=== PATIENT | female | born 1995 | race Two or more races ===

== ENCOUNTER 2021-05-13 09:42 | Emergency (ER) | payer MEDICAID ==
[~2021-05-13] VITALS: Ht 165.1 cm; Wt 81.6 kg
[2021-05-13 10:44] LABS: Basophils # (auto) 0.1 10 ^3/uL (0-0.2); Basophils % (auto) 0.5 % (0.0-2.0); Eosinophils # (auto) 0 10 ^3/uL (0-0.8); Eosinophils % (auto) 0.1 % (0.0-7.0); Hematocrit 43.1 % (36.0-46.0); Hemoglobin 14.2 g/dL (12.2-16.2); Lymphocytes # (auto) 1.2 10 ^3/uL (0.4-5.4); Lymphocytes % (auto) 8.9 % (10.0-50.0); Mean Corpuscular Hemoglobin 28.1 pg (28.0-32.0); Mean Corpuscular Volume 85.1 fL (80.0-100.0); Monocytes # (auto) 0.3 10 ^3/uL (0-1.3); Monocytes % (auto) 2.2 % (0.0-12.0); Neutrophils # (auto) 11.7 10 ^3/uL (1.6-8.6); Neutrophils % (auto) 88.3 % (37.0-80.0); Nucleated Red Blood Cells % 0.1 %; Red Blood Cells 5.06 10^6/uL (4.0-5.20); White Blood Cell 13.3 10^3/uL (4.4-10.8)
[2021-05-13 11:07] LABS: Albumin 4.1 g/dL (3.4-5.0); Magnesium 1.9 mg/dL (1.6-2.6); Potassium 3.2 mmol/L (3.5-5.1)
[2021-05-13 11:12] LABS: Bilirubin, Total 0.7 mg/dL (0.2-1.0); Total Protein 8.4 g/dL (6.4-8.2)
[2021-05-13 11:37] LABS: Urine Amorphous Crystal FEW /hpf (None Seen); Urine Bacteria NONE SEEN /hpf (None Seen); Urine Blood 3+ /uL (Negative); Urine Mucus FEW (None Seen); Urine Specific Gravity 1.036 (1.001-1.035); Urine WBC 13 /hpf (0 - 5)
[2021-05-13] MEDS ORDERED: CIPR-173 PO (12:39)
[2021-05-13] MEDS ORDERED: FAMO20TA10 PO (12:39)
[2021-05-13] MEDS ORDERED: ONDA-144 PO (12:39)
[2021-05-13] MEDS ORDERED: ONDANSETRON HCL 4 MG/2 ML VIAL ONE (12:53)
[2021-05-13] MEDS ORDERED: PANTOPRAZOLE 40 MG/10 ML VIAL INJ IV ONE ×2 (12:53→13:00)
[2021-05-13] MEDS ORDERED: SODIUM CHLORIDE 0.9% 2,450 ML IV ONE (13:00)
[2021-05-13] MEDS ORDERED: SODIUM CHLORIDE 0.9% 1,000 ML IV ONE (13:00)
[2021-05-13] MEDS ORDERED: ONDANSETRON HCL 4 MG/2 ML VIAL IV ONE (13:00)
[2021-05-13 14:32] VITALS: BP 132/84
== END 2021-05-13 14:34 | disposition home or self-care (01) ==
LOC: ER 09:42
DX: N39.0 Urinary tract infection, site not specified (principal); K29.70 Gastritis, unspecified, without bleeding; Z32.02 Encounter for pregnancy test, result negative
CPT/HCPCS: 36415; 74176; 80053; 81001; 81025; 82150; 83690; 83735; 85025; 96361; 96374; 96375; 99284; C9113; J2405; J7030

== ENCOUNTER 2024-07-08 20:44 | Emergency (ER) | payer MEDICAID ==
[~2024-07-08] VITALS: Ht 165.1 cm; Wt 97.7 kg
[~2024-07-08 20:44] MED LIST: CIPR-173 PO; FAMO20TA10 PO; ONDA-144 PO
--- NOTE | 2024-07-08 21:01 | ED.PDOC ---
HPI Comments 29 y.o female presents to the ED for a chief complaint of left sided chest pain associated with SOB that started 3-4 hours ago during work. Patient reports having a physically strenuous job, was pushing and pulling heavy benz and objects when pain presented. Patient reports pain is constant, non radiating and worsens when attempting to take a deep breath. She denies any nausea, vomiting, fever, chills, leg swelling or back pain. Chief Complaint: Chest Pain Time Seen by MD: 20:50 Primary Care Provider: GHAZAL PMD Reviewed Notes: Nurses Notes, Medications, Allergies Allergies: Coded Allergies: NO KNOWN ALLERGIES (Unverified , 05/13/21) Home Meds Active Scripts Ciprofloxacin Hcl (Cipro) 500 Mg Tab, 500 MG PO DAILY for 10 Days, #10 TAB Prov:WILLIAM BO MD 05/13/21 Famotidine (PEPCID TABLET) 20 Mg Tb, 1 TAB PO BID for 10 Days, #20 TAB Prov:WILLIAM BO MD 05/13/21 Ondansetron (Zofran) 4 Mg Tab, 4 MG PO BID for 10 Days, #20 MG Prov:WILLIAM BO MD 05/13/21 Information Source: Patient Mode of Arrival: Ambulatory Severity: Moderate Timing: Hours Duration: Since onset Location: Chest (L) Radiation: No Radiation Quality: Aching Onset: With Heavy Exertion Cardiac Risk Factors: None PE Risk Factors: None History of: None Modifying Factors: Nothing Associated Signs and Symptoms: SOB Past Medical History PAST MEDICAL HISTORY: GERD, Schizophrenia Surgical History: Denies all surgeries RANGE AID History: No Pertinent RANGE AID History Family History Family History: Reviewed,noncontributory to illness Social History Smoker: Non-Smoker Alcohol: Denies ETOH Use Drugs: Denies Drug Use Lives In: Home Constitutional: denies: chills, diaphoresis, fatigue, fever, malaise, sweats, weakness, others EENTM: denies: blurred vision, double vision, ear bleeding, ear discharge, ear drainage, ear pain, ear ringing, eye pain, eye redness, hearing loss, mouth pain, mouth swelling, nasal discharge, nose bleeding, nose congestion, nose pain, photophobia, tearing, throat pain, throat swelling, voice changes, others Respiratory: reports: SOB at rest, shortness of breath; denies: cough, hemoptysis, orthopnea, SOB with excertion, stridor, wheezing, others Cardiovascular: reports: chest pain; denies: dizzy spells, diaphoresis, Dyspnea on exertion, edema, irregular heart beat, left arm pain, lightheadedness, palpitations, PND, syncope, others Gastrointestinal: denies: abdomen distended, abdominal pain, blood streaked bowels, constipated, diarrhea, dysphagia, difficulty swallowing, hematemesis, melena, nausea, poor appetite, poor fluid intake, rectal bleeding, rectal pain, vomiting, others Genitourinary: denies: abnormal vagina bleeding, burning, dyspareunia, dysuria, flank pain, frequency, hematuria, incontinence, pain, , vagina discharge, urgency, others Neurological: denies: dizziness, fainting, headache, left sided numbness, left sided weakness, numbness, paresthesia, pre-existing deficit, right sided numbness, right sided weakness, seizure, speech problems, tingling, tremors, weakness, others Musculoskeletal: denies: back pain, gout, joint pain, joint swelling, muscle pain, muscle stiffness, neck pain, others Integumetry: denies: bruises, change in color, change in hair/nails, dryness, laceration, lesions, lumps, rash, wounds, others Allergic/Immunocompromised: denies: Difficulty Healing, Frequent Infections, Hives, Itching, others Hematologic/Lymphatic: denies: anemia, blood clots, easy bleeding, easy bruising, swollen glands, others Endocrine: denies: excessive hunger, excessive sweating, excessive thirst, excessive urination, flushing, intolerance to cold, intolerance to heat, unexplained weight gain, unexplained weight loss, others Psychiatric: denies: anxiety, bipolar disorder, depression, hopeless, panic disorder, schizophrenia, sleepless, suicidal, others All Other Systems: Reviewed and Negative Physical Exam General Appearance: No Apparent Distress, Normal HEENT: Normal ENT Inspection, Pharynx Normal, TMs Normal Neck: Full Range of Motion, Non-Tender, Normal, Normal Inspection Respiratory: Chest Non-Tender, Lungs Clear, No Accessory Muscle Use, No Respiratory Distress, Normal Breath Sounds Cardiovascular: No Edema, No JVD, No Murmur, No Gallop, Normal Peripheral Pulses, Regular Rate/Rhythm Breast Exam: Deferred Gastrointestinal: No Organomegaly, Non Tender, No Pulsatile Mass, Normal Bowel Sounds, Soft Genitalia: Deferred Pelvic: Deferred Rectal: Deferred Extremities: No calf tenderness, Normal capillary refill, Normal inspection, Normal range of motion, Non-tender, No pedal edema Musculoskeletal : Apperance: Normal 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 Was a procedure done?: No CP Differential Dx Differential Diagnosis: Angina, Anxiety / Panic Attack, Heart Failure, IN Differential Diagnosis: Angina, Chest Wall Pain, Cholelithiasis, Costochondritis, Myocardial Infarction, Pericarditis X-Ray, Labs, Meds, VS Vital Signs Date Time Temp Pulse Resp B/P (MAP) Pulse Ox O2 Delivery O2 Flow Rate FiO2 07/08/24 21:03 98.6 82 17 121/82 (95) 98 07/08/24 20:50 81 Lab Test 07/08/24 20:57 Range/Units White Blood Count 12.1 H 4.4-10.8 10^3/uL Red Blood Count 4.54 4.0-5.20 10^6/uL Hemoglobin 12.1 L 12.2-16.2 g/dL Hematocrit 37.3 36.0-46.0 % Mean Corpuscular Volume 82.2 80.0-100.0 fL Mean Corpuscular Hemoglobin 26.7 L 28.0-32.0 pg Mean Corpuscular Hemoglobin Concent 32.5 32.0-36.0 g/dL Red Cell Distribution Width 15.6 H 11.8-14.3 % Platelet Count 390 140-450 10^3/uL Mean Platelet Volume 8.0 6.9-10.8 fL Neutrophils (%) (Auto) 70.1 37.0-80.0 % Lymphocytes (%) (Auto) 24.8 10.0-50.0 % Monocytes (%) (Auto) 3.8 0.0-12.0 % Eosinophils (%) (Auto) 0.7 0.0-7.0 % Basophils (%) (Auto) 0.6 0.0-2.0 % Neutrophils # (Auto) 8.5 1.6-8.6 10 ^3/uL Lymphocytes # (Auto) 3.0 0.4-5.4 10 ^3/uL Monocytes # (Auto) 0.5 0-1.3 10 ^3/uL Eosinophils # (Auto) 0.1 0-0.8 10 ^3/uL Basophils # (Auto) 0.1 0-0.2 10 ^3/uL Nucleated Red Blood Cells 0.0 % Prothrombin Time 10.5 9.3-11.8 sec Prothrombin Time INR 0.99 0.9-1.15 Activated Partial Thromboplast Time 28.2 24.5-34.5 SEC Sodium Level 139 136-145 mmol/L Potassium Level 3.8 3.5-5.1 mmol/L Chloride Level 105 98-107 mmol/L Carbon Dioxide Level 27 20-31 mmol/L Anion Gap 7 5-15 Blood Urea Nitrogen 14 9-23 mg/dL Creatinine 0.79 0.550-1.02 mg/dL Glomerular Filtration Rate Calc 104 >90 mL/min BUN/Creatinine Ratio 17.7 10.0-20.0 Serum Glucose 90 74-106 mg/dL Calcium Level 10.4 8.7-10.4 mg/dL Total Bilirubin 0.5 0.2-1.0 mg/dL Aspartate Amino Transferase (AST) 15 13-40 U/L Alanine Aminotransferase (ALT) 21 7-40 U/L Alkaline Phosphatase 105 46-116 U/L Troponin I High Sensitivity < 3 L </=34 ng/L B-Type Natriuretic Peptide 3.47 0-100 pg/mL Total Protein 7.3 5.7-8.2 g/dL Albumin 4.6 3.2-4.8 g/dL X-Ray, Labs, Meds, VS Comment Imaging: X-rays and CT scans were reviewed and interpreted by this provider, imaging shows no fractures and no pathological disease. Pending radiology review. Laboratory: Labs reviewed and interpreted by this provider. No significant abnormalities noted. Patient has prior medical visits reviewed. Med reconciliation performed Vital signs reviewed Time of 1ST Reevaluation: 21:01 Reevaluation 1ST: Unchanged Patient Education/Counseling: Diagnosis, Treatment, Prognosis, Need For Follow Up (Follow up with the PCP in the next 2-4 days. Return to the emergency department if symptoms worsen over the next 24 hours.) Family Education/Counseling: No Family Present Departure 1 Departure Time of Disposition: 23:20 Impression: Primary Impression: Musculoskeletal chest pain Disposition: 01 HOME / SELF CARE / HOMELESS Condition: Fair Discharged With: Self Critical Care Note Critical Care Time?: No Stability Stability form required: No Heart Score Heart Score: Heart Score Response (Comments) Value History N/A 0 EKG Normal 0 Age <45 0 Risk Factors No known risk factors 0 Troponin Normal limit 0 Total 0 I personally scribed for ASHLEY LEÓN ([email or web address]) on 07/08/24 at 21:01. Electronically submitted by Mayte Burrell ([facility]CL[facility] FLINT). ASHLEY LEÓN Jul 08, 2024 21:01
[2024-07-08 21:03] VITALS: BP 121/82; PULSE 82; RESP 17; O2SAT 98
[2024-07-08 21:06] LABS: Basophils # (auto) 0.1 10 ^3/uL (0-0.2); Basophils % (auto) 0.6 % (0.0-2.0); Eosinophils # (auto) 0.1 10 ^3/uL (0-0.8); Eosinophils % (auto) 0.7 % (0.0-7.0); Monocytes # (auto) 0.5 10 ^3/uL (0-1.3); Platelet Count (auto) 390 10^3/uL (140-450)
[2024-07-08 21:08] LABS: Hematocrit 37.3 % (36.0-46.0); Hemoglobin 12.1 g/dL (12.2-16.2); Lymphocytes % (auto) 24.8 % (10.0-50.0); Mean Corpuscular Hemoglobin 26.7 pg (28.0-32.0); Mean Corpuscular Hgb Conc. 32.5 g/dL (32.0-36.0); Mean Corpuscular Volume 82.2 fL (80.0-100.0); Monocytes % (auto) 3.8 % (0.0-12.0); Neutrophils # (auto) 8.5 10 ^3/uL (1.6-8.6); Neutrophils % (auto) 70.1 % (37.0-80.0); Red Blood Cells 4.54 10^6/uL (4.0-5.20); Red Cell Distribution Width 15.6 % (11.8-14.3); White Blood Cell 12.1 10^3/uL (4.4-10.8)
[2024-07-08 21:23] LABS: INR 0.99 (0.9-1.15); Partial Thromboplastin Time 28.2 SEC (24.5-34.5); Prothrombin Time 10.5 sec (9.3-11.8)
[2024-07-08 21:25] LABS: Alanine Aminotransferase 21 U/L (7-40); Albumin 4.6 g/dL (3.2-4.8); Alkaline Phosphatase 105 U/L (46-116); Anion Gap 7 (5-15); Aspartate Aminotransferase 15 U/L (13-40); BUN/Creatinine Ratio 17.7 (10.0-20.0); Bilirubin, Total 0.5 mg/dL (0.2-1.0); Blood Urea Nitrogen 14 mg/dL (9-23); Calcium 10.4 mg/dL (8.7-10.4); Carbon Dioxide 27 mmol/L (20-31); Chloride 105 mmol/L (98-107); Glucose 90 mg/dL (74-106); Potassium 3.8 mmol/L (3.5-5.1); Sodium 139 mmol/L (136-145)
[2024-07-08 21:26] LABS: Total Protein 7.3 g/dL (5.7-8.2)
--- NOTE | 2024-07-08 21:37 | DVH ---
EXAMINATION: AP portable chest radiograph CLINICAL HISTORY: CP COMPARISON: None FINDINGS: No dominant consolidation. The costophrenic angles appear clear. No sizable pleural effusion or pneu mothorax. The cardiomediastinal silhouette appears within normal limits. IMPRESSION: No acute cardiopulmonary findings as visualized.
--- NOTE | 2024-07-09 17:56 | ECG ---
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
== END 2024-07-08 23:56 | disposition home or self-care (01) ==
LOC: ER 20:44
DX: R07.89 Other chest pain (principal); K21.9 Gastro-esophageal reflux disease without esophagitis; F20.9 Schizophrenia, unspecified; Z79.899 Other long term (current) drug therapy
CPT/HCPCS: 36415; 71045; 80053; 83880; 84484; 85025; 85610; 85730; 93005

== ENCOUNTER 2024-10-10 17:52 | Emergency (ER) | payer MEDICAID ==
[~2024-10-10] VITALS: Ht 165.1 cm; Wt 101.5 kg
--- NOTE | 2024-10-10 19:03 | ED.PDOC ---
GI ASSESSMENT HPI Comments 29-year-old female came to emergency room for GI bleed. Patient states this morning she noted bright red blood with clots on her stool whenever she used the bathroom on the stool and wiping Said episode happened 3x today. No leakage of blood in the underwear. Noted diffuse abdominal discomfort but denies any rectal pain, denies any nausea, vomiting or weakness. He had increased number of bowel movements today. Had a similar episode of GI bleed before but resolved quickly. She denies any recent change in her diet. Denies any easy bruising or bleeding elsewhere. Denies history of constipation or hemorrhoids. Chief Complaint: Abdominal Pain Time Seen by MD: 19:02 Primary Care Provider: DENIES PMD Reviewed Notes: Nurses Notes Allergies: Coded Allergies: NO KNOWN ALLERGIES (Unverified , 05/13/21) Home Meds Active Scripts Ciprofloxacin Hcl (Cipro) 500 Mg Tab, 500 MG PO DAILY for 10 Days, #10 TAB Prov:WILLIAM BO MD 05/13/21 Famotidine (PEPCID TABLET) 20 Mg Tb, 1 TAB PO BID for 10 Days, #20 TAB Prov:WILLIAM BO MD 05/13/21 Ondansetron (Zofran) 4 Mg Tab, 4 MG PO BID for 10 Days, #20 MG Prov:WILLIAM BO MD 05/13/21 Information Source: Patient Mode of Arrival: Ambulatory Timing: Hours Duration: Intermittent Prehospital treatment: None Quality: Aching Vomitus: None Stool: Blood Streaked Severity: Moderate Recent Hx of: None Pain Location: Diffuse Associated sign and symptoms: Abdominal Pain Review of Systems REVIEW OF SYSTEMS: No fever, no chills, or fatigue HEENT: No sore throat, no earache, no congestion, no neck pain. Cardiac: No chest pain. No palpitations. Lungs: No shortness of breath, no cough. GI: No nausea, no vomiting, no diarrhea, no constipation, (+) abdominal pain, (+) rectal bleed, no rectal pain : No dysuria, frequency, or urgency. No hematuria. Musculoskeletal: No joint pain , no joint swelling, no extremity edema. Skin: No rash, no itching. Neuro: No headache, no dizziness, no weakness Vital Signs Vital Signs Date Time Temp Pulse Resp B/P (MAP) Pulse Ox O2 Delivery O2 Flow Rate FiO2 10/10/24 18:39 98.1 84 18 111/64 (80) 96 98.1 Physical Exam General: Awake, alert and oriented. No acute distress. Skin: Skin in warm, dry and intact. Appropriate color for ethnicity. Nailbeds pink with no cyanosis. HEENT: The head is normocephalic and atraumatic. Conjunctivae are clear without exudates or hemorrhage. Sclera is non-icteric. EOM are intact. No signs of nystagmus. Eyelids are normal in appearance without swelling or lesions. Oral mucosa is pink and moist Neck: The neck is supple with normal range of motion. No JVD. Cardiac: Heart rate and rhythm are normal. No murmurs, gallops, or rubs are auscultated. Respiratory: No signs of respiratory distress. Lung sounds are clear in all lobes bilaterally without rales, ronchi, or wheezes. Abdominal: Abdomen is soft, non-tender without distention. Bowel sounds are present and normoactive in all four quadrants. : Deferred Extremities: Upper and lower extremities are atraumatic in appearance without deformity or edema. Neurological: The patient is awake, alert and oriented to person, place, and time with normal speech. Speech is clear. There is no facial asymmetry. Psychiatric: Appropriate mood and affect. Good judgement and insight. No visual or auditory hallucinations. Past Medical History PAST MEDICAL HISTORY: GERD, Schizophrenia Surgical History: Denies all surgeries REFERRAL NURSE History: No Pertinent REFERRAL NURSE History Family History Family History: Reviewed,noncontributory to illness Social History Smoker: Non-Smoker Alcohol: Denies ETOH Use Drugs: Denies Drug Use Lives In: Home Was a procedure done? Was a procedure done?: No GI differential Dx Differential Diagnosis: Constipation, Diverticular disease, Gastritis/PUD, Gastroenteritis, GI hemorrhage, Ischemic Bowel, Anemia, Other (Colitis, anal fissure, hemorrhoids, constipation, IBS, IBD, bleeding disorder, other) X-Ray, Labs, Meds, VS Vital Signs Date Time Temp Pulse Resp B/P (MAP) Pulse Ox O2 Delivery O2 Flow Rate FiO2 10/10/24 18:39 98.1 84 18 111/64 (80) 96 98.1 Lab Test 10/10/24 20:08 10/10/24 19:32 Range/Units Urine Color Light-yellow Yellow Urine Clarity Clear Clear Urine pH 5.5 5.0-9.0 Urine Specific [place] 1.024 1.001-1.035 Urine Protein Negative Negative Urine Ketones Negative Negative Urine Blood Negative Negative /uL Urine Nitrite Negative Negative Urine Bilirubin Negative Negative Urine Urobilinogen Normal Negative mg/dL Urine Leukocyte Esterase Negative Negative /uL Urine RBC 2 0 - 4 /hpf Urine Microscopic WBC 6 H 0-5 /HPF Urine Squamous Epithelial Cells Few <5 /hpf Urine Bacteria Few H None Seen /hpf Urine Glucose Normal Normal mg/dL Urine Test Positive Negative Stool Occult Blood Sample #3 Pending White Blood Count 11.0 H 4.4-10.8 10^3/uL Red Blood Count 4.63 4.0-5.20 10^6/uL Hemoglobin 12.1 L 12.2-16.2 g/dL Hematocrit 37.8 36.0-46.0 % Mean Corpuscular Volume 81.6 80.0-100.0 fL Mean Corpuscular Hemoglobin 26.2 L 28.0-32.0 pg Mean Corpuscular Hemoglobin Concent 32.1 32.0-36.0 g/dL Red Cell Distribution Width 16.1 H 11.8-14.3 % Platelet Count 354 140-450 10^3/uL Mean Platelet Volume 8.1 6.9-10.8 fL Neutrophils (%) (Auto) 64.7 37.0-80.0 % Lymphocytes (%) (Auto) 27.7 10.0-50.0 % Monocytes (%) (Auto) 5.0 0.0-12.0 % Eosinophils (%) (Auto) 2.3 0.0-7.0 % Basophils (%) (Auto) 0.3 0.0-2.0 % Neutrophils # (Auto) 7.2 1.6-8.6 10 ^3/uL Lymphocytes # (Auto) 3.1 0.4-5.4 10 ^3/uL Monocytes # (Auto) 0.6 0-1.3 10 ^3/uL Eosinophils # (Auto) 0.3 0-0.8 10 ^3/uL Basophils # (Auto) 0 0-0.2 10 ^3/uL Nucleated Red Blood Cells 0.1 % Prothrombin Time 9.6 9.3-11.8 sec Prothrombin Time INR 0.90 0.9-1.15 Sodium Level 136 136-145 mmol/L Potassium Level 4.3 3.5-5.1 mmol/L Chloride Level 107 98-107 mmol/L Carbon Dioxide Level 22 20-31 mmol/L Anion Gap 7 5-15 Blood Urea Nitrogen 16 9-23 mg/dL Creatinine 0.81 0.550-1.02 mg/dL Glomerular Filtration Rate Calc 101 >90 mL/min BUN/Creatinine Ratio 19.8 10.0-20.0 Serum Glucose 107 H 74-106 mg/dL Lactic Acid Level 0.8 0.4-2.0 mmol/L Calcium Level 10.0 8.7-10.4 mg/dL Total Bilirubin 0.3 0.2-1.0 mg/dL Aspartate Amino Transferase (AST) 11 L 13-40 U/L Alanine Aminotransferase (ALT) 15 7-40 U/L Alkaline Phosphatase 91 46-116 U/L Total Protein 7.1 5.7-8.2 g/dL Albumin 4.5 3.2-4.8 g/dL Beta HCG, Quantitative 48.9 H 1.5-4.2 mIU/mL Time of 1ST Reevaluation: 18:58 Reevaluation 1ST: Unchanged Patient Education/Counseling: Other Family Education/Counseling: No Family Present Departure 1 Departure Time of Disposition: 22:22 Impression: Primary Impression: Rectal bleeding Additional Impressions: , location unknown Elevated serum hCG UTI (urinary tract infection) Disposition: 01 HOME / SELF CARE / HOMELESS Condition: Stable Additional Instructions: ED DISCHARGE INSTRUCTIONS Instructions: Please read all instructions provided in this packet carefully. Although you have been discharged from the Emergency Department, this does not mean that you have a "clean bill of health". No definitive diagnosis for your symptoms has been made today. It is possible that you are in the process of developing a serious illness. This is why you must return to the ED without fail if any new or worsening symptoms (especially if your symptoms include vaginal bleeding, pelvic pain, heavy rectal bleeding, rectal pain, weakness, dizziness, chest pain, trouble breathing, abdominal pain, fever, headache, confusion, trouble seeing, or trouble walking) It is also very important that you see a primary care doctor within the next 1-4 days to follow up. Your ultrasound today shows possible early . You will need repeat level and ultrasound. A copy of your ultrasound results are included in this packet. If you are unable to get an appointment, return to the ED for re-evaluation. What is PUL? of unknown location (PUL) is when you have a positive urine or blood test, and the cannot be seen on ultrasound. When you have a PUL, it must be found. Your care team will decide if it will grow safely. Why we cannot see it on ultrasound? It is too early to see A person is having a miscarriage There is an ectopic What is an ectopic ? It is a that started outside the uterus. This can be life threatening It is never normal You will need close follow up with: Ultrasounds Blood work Visits with your care team Ectopic pregnancies happen most often inside the fallopian tube. It can also be called a tubal . Other places they can be found are: The cervix A scar An ovary The abdomen 2 out of 100 pregnancies will be outside of the uterus (ectopic). The cannot carry on because: They can be life threatening Cannot be a viable Cannot be moved to the uterus When found early, some can be treated with a medicine called methotrexate. You may need a minor surgery to remove the or your fallopian tube. Caring for yourself at home Until the is found, you should: Get pelvic rest (do not douche, use tampons, or have sex). Not take ibuprofen, Motrin, aspirin, or other NSAID medicines Take acetaminophen (Tylenol) as needed. Drink lots of water Take your medicine unless told by your care team Do not wait until the clinic is open. Call right away or go to your emergency room if you have: Heavy vaginal bleeding (soaking through a pad in less than 1 hour) Abdominal pain that is severe or gets worse Lightheadedness or fainting Follow-up Close follow-up is needed for a PUL A blood test. This test is known as a serum beta human chorionic gonadotrophin (HCG). It may be called a qaunt Return to get your second HCG 48 hours after this visit. Your HCG level should go up by about 66% in that time if: the is normal it is growing in your uterus An ultrasound in 7 to 14 days You need to return to have tests done. Gastrointestinal Bleeding: Care Instructions Overview The digestive or gastrointestinal tract goes from the mouth to the anus. It is often called the GI tract. Bleeding can happen anywhere in the GI tract. It may be caused by an ulcer, an infection, or cancer. It may also be caused by medicines such as aspirin or ibuprofen. Light bleeding may not cause any symptoms at first. But if you continue to bleed for a while, you may feel weak or tired. Sudden, heavy bleeding means you need to see a doctor right away. The doctor may do some tests to find the cause of your bleeding. Treatment is needed to control the bleeding and treat the cause of the bleeding. Follow-up care is a perez part of your treatment and safety. Be sure to make and go to all appointments, and call your doctor if you are having problems. It's also a good idea to know your test results and keep a list of the medicines you take. How can you care for yourself at home? Be safe with medicines. Take your medicines exactly as prescribed. Call your doctor if you think you are having a problem with your medicine. You will get more details on the specific medicines your doctor prescribes. Do not take blood thinners, aspirin, or other anti-inflammatory medicines, such as naproxen (Aleve) or ibuprofen (Advil, Motrin), without talking to your doctor first. Do not drink alcohol. The bleeding may increase your risk for a low red blood cell count (anemia). When should you call for help? Call 911 anytime you think you may need emergency care. For example, call if: You have sudden, severe belly pain. You vomit blood or what looks like coffee grounds. You passed out (lost consciousness). Your stools are maroon or very bloody. Call your doctor now or seek immediate medical care if: You are dizzy or lightheaded, or you feel like you may faint. Your stools are black and look like tar, or they have streaks of blood. You have belly pain. You vomit or have nausea. You have trouble swallowing, or it hurts when you swallow. Watch closely for changes in your health, and be sure to contact your doctor if: You do not get better as expected. Credits for Gastrointestinal Bleeding: Care Instructions Current as of: April 20, 2023 Author: [employer] [employer] Staff Clinical Review Board All [employer] education is reviewed by a team that includes physicians, nurses, advanced practitioners, registered dieticians, and other healthcare professionals. Ultrasound results: OB ULTRASOUND <14 WEEKS: HISTORY: Positive , bleeding TECHNIQUE: Multiple real-time grayscale sonographic images of the pelvis with duplex Doppler color flow, spectral and M-mode analysis. FINDINGS: Uterus is anteverted and measures 8.3 x 4.2 x 5.3 cm. Bladder is unremarkable there is no fluid in the pelvis endometrium measures 13.5 mm in thickness. Right ovary measures 3.85 x 2.3 x 2.45 cm. Left ovary measures 2.05 x 1.3 x 2 cm. No intrauterine or ectopic are appreciated. IMPRESSION: 1. There appears to be a decidual reaction no is seen. Patient's beta hCGs still indicate I would recommend follow-up study in 10 days to 2 weeks e-Prescriptions Nitrofurantoin Monohydrate Mac (Macrobid) 100 Mg Cap 100 MG PO BID for 5 Days, #10 CAP Prov: MARY MORALES MD 10/10/24 Comments 29-year-old female presents to the emergency department with painless rectal bleeding/blood in stool. Incidental elevated hCG results concerning for possible early versus other cause was found. Discussed these results with the patient, discussed option for admission for further evaluation, treatment and observation versus observation at home with prompt follow up with either the PCP or in the emergency department within a few days. Patient would like to go home and follow up as an outpatient. Advised return precautions including abdominal pain, vaginal bleeding, pelvic pain, heavy rectal bleeding, rectal pain. Discussed possibility of of unknown location, unclear cause for rectal bleeding at this time. Advised patient that she will need further evaluation for cause of rectal bleeding. Extensive evaluation was performed in attempt to identify or rule out: (See differential diagnosis section) The following tests were ordered, and results were reviewed by me and discussed with the patient: (See diagnostic results section) The following test were independently interpreted by me: N/A I reviewed and agreed with the following test results read by other providers: N/A I reviewed the following notes from the pt's past medical encounters: ED encounter July 2024 for chest pain Additional information was gathered from interviewing the following independent historians: N/A Discussion of management or test interpretation with external physician/other qualified health acute care assistant: N/A Decision regarding hospitalization or escalation of hospital level of care: Risks and benefits of admission for further treatment of patient's condition was considered however due to patient's stable condition patient will be discharged to follow up closely or return to care for worsening of condition or inability to follow up. Critical Care Note Critical Care Time?: No Stability Stability form required: No Heart Score Heart Score: Heart Score Response (Comments) Value History N/A 0 EKG N/A 0 Age N/A 0 Risk Factors N/A 0 Troponin N/A 0 Total 0 I personally scribed for MARY MORALES MD ([email or web address]) on 10/10/24 at 19:03. Electronically submitted by Will Black ([email or web address]). MARY MORALES MD Oct 10, 2024 19:03
[2024-10-10 19:53] LABS: Basophils # (auto) 0 10 ^3/uL (0-0.2); Basophils % (auto) 0.3 % (0.0-2.0); Eosinophils # (auto) 0.3 10 ^3/uL (0-0.8); Eosinophils % (auto) 2.3 % (0.0-7.0); Hematocrit 37.8 % (36.0-46.0); Hemoglobin 12.1 g/dL (12.2-16.2); Lymphocytes # (auto) 3.1 10 ^3/uL (0.4-5.4); Lymphocytes % (auto) 27.7 % (10.0-50.0); Mean Corpuscular Hemoglobin 26.2 pg (28.0-32.0); Mean Corpuscular Hgb Conc. 32.1 g/dL (32.0-36.0); Mean Corpuscular Volume 81.6 fL (80.0-100.0); Monocytes # (auto) 0.6 10 ^3/uL (0-1.3); Neutrophils # (auto) 7.2 10 ^3/uL (1.6-8.6); Neutrophils % (auto) 64.7 % (37.0-80.0); Nucleated Red Blood Cells % 0.1 %; Platelet Count (auto) 354 10^3/uL (140-450); Red Blood Cells 4.63 10^6/uL (4.0-5.20); Red Cell Distribution Width 16.1 % (11.8-14.3)
[2024-10-10 20:07] LABS: Alanine Aminotransferase 15 U/L (7-40); Albumin 4.5 g/dL (3.2-4.8); Alkaline Phosphatase 91 U/L (46-116); Anion Gap 7 (5-15); BUN/Creatinine Ratio 19.8 (10.0-20.0); Blood Urea Nitrogen 16 mg/dL (9-23); Carbon Dioxide 22 mmol/L (20-31); Chloride 107 mmol/L (98-107); INR 0.9 (0.9-1.15); Potassium 4.3 mmol/L (3.5-5.1); Prothrombin Time 9.6 sec (9.3-11.8); Sodium 136 mmol/L (136-145); Total Protein 7.1 g/dL (5.7-8.2)
[2024-10-10 20:23] LABS: Urine Bacteria FEW /hpf (None Seen); Urine Blood Negative /uL (Negative); Urine Clarity Clear (Clear); Urine Color Light-Yellow (Yellow); Urine Protein, UAD Negative (Negative); Urine Specific Gravity 1.024 (1.001-1.035); Urine Squamous Epithelial Cell FEW /hpf (<5); Urine Urobilinogen Normal (Negative); Urine WBC 6 /HPF (0-5); Urine pH 5.5 (5.0-9.0)
[2024-10-10 20:30] LABS: Aspartate Aminotransferase 11 U/L (13-40); Bilirubin, Total 0.3 mg/dL (0.2-1.0); Glucose 107 mg/dL (74-106)
--- NOTE | 2024-10-10 21:20 | DVH ---
OB ULTRASOUND <14 WEEKS: HISTORY: Positive , bleeding TECHNIQUE: Multiple real-time grayscale sonographic images of the pelvis with duplex Doppler color f low, spectral and M-mode analysis. FINDINGS: Uterus is anteverted and measures 8.3 x 4.2 x 5.3 cm. Bladder is unremarkable there is no fluid in the pelvis endometrium measures 13.5 mm in thickness. R ight ovary measures 3.85 x 2.3 x 2.45 cm. Left ovary measures 2.05 x 1.3 x 2 cm. No intrauterine preg jacob or ectopic are appreciated. IMPRESSION: 1. There appears to be a decidual reaction no is seen. Patient's beta hCGs still indicate p regnancy I would recommend follow-up study in 10 days to 2 weeks
[2024-10-10] MEDS ORDERED: NITR-87 PO (22:46)
[2024-10-11 00:15] VITALS: BP 113/64; PULSE 74; RESP 20; TEMP 98.2; O2SAT 97
[2024-10-11] MEDS: PANTOPRAZOLE 40 MG/10 ML VIAL INJ IV ONE (00:20)
== END 2024-10-11 00:35 | disposition home or self-care (01) ==
LOC: ER 17:52
DX: O46.90 Antepartum hemorrhage, unspecified, unspecified trimester (principal); O23.40 Unspecified infection of urinary tract in pregnancy, unspecified trimester; R10.2 Pelvic and perineal pain; K62.5 Hemorrhage of anus and rectum; R89.1 Abnormal level of hormones in specimens from other organs, systems and tissues; N39.0 Urinary tract infection, site not specified; Z3A.00 Weeks of gestation of pregnancy not specified
CPT/HCPCS: 36415; 76801; 76817; 80053; 81001; 81025; 82270; 82272; 83605; 84702; 85025; 85610

== ENCOUNTER 2024-10-15 00:11 | Emergency (ER) | payer MEDICAID ==
[~2024-10-15] VITALS: Ht 167.6 cm; Wt 100.1 kg
[~2024-10-15 00:11] MED LIST changes: +NITR-87 PO
[2024-10-15 00:20] VITALS: BP 102/68; PULSE 91; RESP 16; TEMP 98.8; O2SAT 96
--- NOTE | 2024-10-15 00:32 | ED.PDOC ---
History of Present Illness HPI Comments 29-year-old female came to emergency room for re-evaluation of of unknown location. Patient was recently seen here and had an unexpected 48.9 beta HCG level and had an ultrasound that showed no intrauterine . Patient has not had no more rectal bleeding or any more pelvic pain or cramping since her previous visit. Chief Complaint: Time Seen by MD: 00:25 Primary Care Provider: GHAZAL PMD Reviewed Notes: Medications, Allergies Allergies: Coded Allergies: NO KNOWN ALLERGIES (Unverified , 05/13/21) Home Meds Active Scripts Nitrofurantoin Monohydrate Mac (Macrobid) 100 Mg Cap, 100 MG PO BID for 5 Days, #10 CAP Prov:MARY MORALES MD 10/10/24 Ciprofloxacin Hcl (Cipro) 500 Mg Tab, 500 MG PO DAILY for 10 Days, #10 TAB Prov:WILLIAM BO MD 05/13/21 Famotidine (PEPCID TABLET) 20 Mg Tb, 1 TAB PO BID for 10 Days, #20 TAB Prov:WILLIAM BO MD 05/13/21 Ondansetron (Zofran) 4 Mg Tab, 4 MG PO BID for 10 Days, #20 MG Prov:WILLIAM BO MD 05/13/21 Information Source: Patient Mode of Arrival: Ambulatory Severity: Moderate Timing: Days Duration: Since onset Prehospital treatment: None Vital Signs Vital Signs Date Time Temp Pulse Resp B/P (MAP) Pulse Ox O2 Delivery O2 Flow Rate FiO2 10/15/24 00:20 98.8 91 16 102/68 (79 96 98.8 Physical Exam General: Awake, alert and oriented. No acute distress. Skin: Skin in warm, dry and intact. Appropriate color for ethnicity. HEENT: The head is normocephalic and atraumatic. Conjunctivae are clear without exudates or hemorrhage. Sclera is non-icteric. EOM are intact. No signs of nystagmus. Eyelids are normal in appearance without swelling or lesions. Oral mucosa is pink and moist Neck: The neck is supple with normal range of motion. No JVD. Cardiac: Heart rate normal. Respiratory: No signs of respiratory distress. Abdominal: Abdomen is soft, non-tender without distention. Extremities: Upper and lower extremities are atraumatic in appearance without deformity or edema. Neurological: The patient is awake, alert and oriented to person, place, and time with normal speech. Speech is clear. There is no facial asymmetry. Normal gait. Psychiatric: Appropriate mood and affect. Good judgement and insight. Review of Systems: REVIEW OF SYSTEMS: No fever, no chills, HEENT: No neck pain, no blurred vision Cardiac: No chest pain. No palpitations. Lungs: No shortness of breath, GI: No abdominal or pelvic pain, no vomiting, no blood in the stool, no vaginal bleeding Musculoskeletal: No joint pain , no back pain Skin: No rash, no wound Neuro: No headache, no dizziness, no syncope Past Medical History PAST MEDICAL HISTORY: GERD, Schizophrenia Surgical History: Denies all surgeries LICENSE EXAMINER History: No Pertinent LICENSE EXAMINER History Family History Family History: Reviewed,noncontributory to illness Social History Smoker: Non-Smoker Alcohol: Denies ETOH Use Drugs: Denies Drug Use Lives In: Home Was a procedure done? Was a procedure done?: No Differential Dx Considerations may include: of unknown location, early , ectopic , bacterial vaginitis, STI, urinary tract infection, other X-Ray, Labs, Meds, VS Vital Signs Date Time Temp Pulse Resp B/P (MAP) Pulse Ox O2 Delivery O2 Flow Rate FiO2 10/15/24 00:20 98.8 91 16 102/68 (79) 96 98.8 Lab Test 10/15/24 01:00 10/15/24 00:38 Range/Units Urine Color Light-yellow Yellow Urine Clarity Clear Clear Urine pH 5.5 5.0-9.0 Urine Specific [place] 1.026 1.001-1.035 Urine Protein Negative Negative Urine Ketones Negative Negative Urine Blood Negative Negative /uL Urine Nitrite Negative Negative Urine Bilirubin Negative Negative Urine Urobilinogen Normal Negative mg/dL Urine Leukocyte Esterase Negative Negative /uL Urine RBC 3 0 - 4 /hpf Urine Microscopic WBC 5 0-5 /HPF Urine Squamous Epithelial Cells Few <5 /hpf Urine Bacteria Many H None Seen /hpf Urine Mucus Few None Seen Urine Glucose Normal Normal mg/dL Urine Test Positive Negative Chlamydia trachomatis (JLUIS) Pending Neisseria gonorrhoeae (JLUIS) Pending White Blood Count 12.2 H 4.4-10.8 10^3/uL Red Blood Count 4.58 4.0-5.20 10^6/uL Hemoglobin 12.3 12.2-16.2 g/dL Hematocrit 37.2 36.0-46.0 % Mean Corpuscular Volume 81.3 80.0-100.0 fL Mean Corpuscular Hemoglobin 26.8 L 28.0-32.0 pg Mean Corpuscular Hemoglobin Concent 32.9 32.0-36.0 g/dL Red Cell Distribution Width 16.4 H 11.8-14.3 % Platelet Count 363 140-450 10^3/uL Mean Platelet Volume 8.1 6.9-10.8 fL Neutrophils (%) (Auto) 60.1 37.0-80.0 % Lymphocytes (%) (Auto) 32.4 10.0-50.0 % Monocytes (%) (Auto) 4.9 0.0-12.0 % Eosinophils (%) (Auto) 1.8 0.0-7.0 % Basophils (%) (Auto) 0.8 0.0-2.0 % Neutrophils # (Auto) 7.3 1.6-8.6 10 ^3/uL Lymphocytes # (Auto) 4.0 0.4-5.4 10 ^3/uL Monocytes # (Auto) 0.6 0-1.3 10 ^3/uL Eosinophils # (Auto) 0.2 0-0.8 10 ^3/uL Basophils # (Auto) 0.1 0-0.2 10 ^3/uL Nucleated Red Blood Cells 0.0 % Sodium Level 138 136-145 mmol/L Potassium Level 3.9 3.5-5.1 mmol/L Chloride Level 106 98-107 mmol/L Carbon Dioxide Level 23 20-31 mmol/L Anion Gap 9 5-15 Blood Urea Nitrogen 11 9-23 mg/dL Creatinine 0.81 0.550-1.02 mg/dL Glomerular Filtration Rate Calc 101 >90 mL/min BUN/Creatinine Ratio 13.6 10.0-20.0 Serum Glucose 100 74-106 mg/dL Calcium Level 9.9 8.7-10.4 mg/dL Beta HCG, Quantitative 497.4 H 1.5-4.2 mIU/mL PATIENT: LEIA REGALADO V ACCT: [id number] UNIT: [id number] : 1995 LOC: ER ROOM / BED: / AGE / SEX: 29 / F ADM STATUS: REG ER SERVICE 0027 ORDERING PHYSICIAN: MARY MORALES MD PROCEDURE(s): OB4US - OB ULTRASOUND COMP LESS 14WKS REASON: PUL ORDER NUMBER(s): [id number], ACCESSION NUMBER(s): [id number] INDICATION: Positive beta HCG TECHNIQUE: Real time transabdominal and endovaginal ultrasound imaging of the pelvis was performed with harris scale, color flow, and spectral Doppler. COMPARISON: US OB ULTRASOUND COMP LESS 14WKS on DOS: 10/10/24 FINDINGS: The uterus is anteverted and measures 8.2 x 5.6 x 4.9 cm. The endometrial stripe measures 2.1 cm. No evidence of gestational sac. Right ovary measures 3.8 x 3.3 x 2.8 cm. Unremarkable. Arterial and venous flow is present. Left ovary measures 2.9 x 2.7 x 1.7 cm . Unremarkable. Arterial and venous flow is present. No free fluid. IMPRESSION: Thickened endometrium without evidence of gestational sac, possibly relates to early IUP. Ectopic not excluded. The need for follow-up imaging can be clinically determined. ATED BY: MELANY STEPHENSON MD DICTATED DATE/TIME: 10/15/24232 SIGNED BY: MELAYN STEPHENSON MD SIGNED DATE/TIME: 10/15/24232 CC: Time of 1ST Reevaluation: 00:55 Reevaluation 1ST: Unchanged Patient Education/Counseling: Need For Follow Up Family Education/Counseling: No Family Present Departure 1 Departure Time of Disposition: 02:49 Impression: Primary Impression: , location unknown Disposition: 01 HOME / SELF CARE / HOMELESS Condition: Stable Additional Instructions: ED DISCHARGE INSTRUCTIONS Instructions: Please read all instructions provided in this packet carefully. Although you have been discharged from the Emergency Department, this does not mean that you have a "clean bill of health". No definitive diagnosis for your symptoms has been made today. It is possible that you are in the process of developing a serious illness. This is why you must return to the ED without fail if any new or worsening symptoms (especially if your symptoms include chest pain, trouble breathing, vaginal bleeding, pelvic pain, abdominal pain, fever, headache, confusion, trouble seeing, or trouble walking) It is also very important that you see a primary care doctor or horticulture worker within the next 7 days to follow up. A copy of your results from today is included below. If you are unable to get an appointment, return to the ED for re-evaluation. What is PUL? of unknown location (PUL) is when you have a positive urine or blood test, and the cannot be seen on ultrasound. When you have a PUL, it must be found. Your care team will decide if it will grow safely. Why we cannot see it on ultrasound? It is too early to see A person is having a miscarriage There is an ectopic What is an ectopic ? It is a that started outside the uterus. This can be life threatening It is never normal You will need close follow up with: Ultrasounds Blood work Visits with your care team Ectopic pregnancies happen most often inside the fallopian tube. It can also be called a tubal . Other places they can be found are: The cervix A scar An ovary The abdomen 2 out of 100 pregnancies will be outside of the uterus (ectopic). The cannot carry on because: They can be life threatening Cannot be a viable Cannot be moved to the uterus When found early, some can be treated with a medicine called methotrexate. You may need a minor surgery to remove the or your fallopian tube. Caring for yourself at home Until the is found, you should: Get pelvic rest (do not douche, use tampons, or have sex). Not take ibuprofen, Motrin, aspirin, or other NSAID medicines Take acetaminophen (Tylenol) as needed. Drink lots of water Take your medicine unless told by your care team Do not wait until the clinic is open. Call right away or go to your emergency room if you have: Heavy vaginal bleeding (soaking through a pad in less than 1 hour) Abdominal pain that is severe or gets worse Lightheadedness or fainting Follow-up Close follow-up is needed for a PUL A blood test. This test is known as a serum beta human chorionic gonadotrophin (HCG). It may be called a qaunt Return to get your second HCG 48 hours after this visit. Your HCG level should go up by about 66% in that time if: the is normal it is growing in your uterus An ultrasound in 7 to 14 days You need to return to have tests done. --------- PATIENT: LEIA REGALADO V ACCT: [id number] UNIT: [id number] : 1995 LOC: ER ROOM / BED: / AGE / SEX: 29 / F ADM STATUS: REG ER SERVICE 0027 ORDERING PHYSICIAN: MARY MORALES MD PROCEDURE(s): OB4US - OB ULTRASOUND COMP LESS 14WKS REASON: PUL ORDER NUMBER(s): [id number], ACCESSION NUMBER(s): [id number] INDICATION: Positive beta HCG TECHNIQUE: Real time transabdominal and endovaginal ultrasound imaging of the pelvis was performed with harris scale, color flow, and spectral Doppler. COMPARISON: US OB ULTRASOUND COMP LESS 14WKS on DOS: 10/10/24 FINDINGS: The uterus is anteverted and measures 8.2 x 5.6 x 4.9 cm. The endometrial stripe measures 2.1 cm. No evidence of gestational sac. Right ovary measures 3.8 x 3.3 x 2.8 cm. Unremarkable. Arterial and venous flow is present. Left ovary measures 2.9 x 2.7 x 1.7 cm . Unremarkable. Arterial and venous flow is present. No free fluid. IMPRESSION: Thickened endometrium without evidence of gestational sac, possibly relates to early IUP. Ectopic not excluded. The need for follow-up imaging can be clinically determined. ATED BY: MELANY STEPHENSON MD DICTATED DATE/TIME: 10/15/24232 SIGNED BY: MELANY STEPHENSON MD SIGNED DATE/TIME: 10/15/24232 CC: ------ Vital Signs Date Time Temp Pulse Resp B/P (MAP) Pulse Ox O2 Delivery O2 Flow Rate FiO2 10/15/24 00:20 98.8 91 16 102/68 (79) 96 98.8 Lab Test 10/15/24 01:00 10/15/24 00:38 Range/Units Urine Color Light-yellow Yellow Urine Clarity Clear Clear Urine pH 5.5 5.0-9.0 Urine Specific [place] 1.026 1.001-1.035 Urine Protein Negative Negative Urine Ketones Negative Negative Urine Blood Negative Negative /uL Urine Nitrite Negative Negative Urine Bilirubin Negative Negative Urine Urobilinogen Normal Negative mg/dL Urine Leukocyte Esterase Negative Negative /uL Urine RBC 3 0 - 4 /hpf Urine Microscopic WBC 5 0-5 /HPF Urine Squamous Epithelial Cells Few <5 /hpf Urine Bacteria Many H None Seen /hpf Urine Mucus Few None Seen Urine Glucose Normal Normal mg/dL Urine Test Positive Negative Chlamydia trachomatis (JLUIS) Pending Neisseria gonorrhoeae (JLUIS) Pending White Blood Count 12.2 H 4.4-10.8 10^3/uL Red Blood Count 4.58 4.0-5.20 10^6/uL Hemoglobin 12.3 12.2-16.2 g/dL Hematocrit 37.2 36.0-46.0 % Mean Corpuscular Volume 81.3 80.0-100.0 fL Mean Corpuscular Hemoglobin 26.8 L 28.0-32.0 pg Mean Corpuscular Hemoglobin Concent 32.9 32.0-36.0 g/dL Red Cell Distribution Width 16.4 H 11.8-14.3 % Platelet Count 363 140-450 10^3/uL Mean Platelet Volume 8.1 6.9-10.8 fL Neutrophils (%) (Auto) 60.1 37.0-80.0 % Lymphocytes (%) (Auto) 32.4 10.0-50.0 % Monocytes (%) (Auto) 4.9 0.0-12.0 % Eosinophils (%) (Auto) 1.8 0.0-7.0 % Basophils (%) (Auto) 0.8 0.0-2.0 % Neutrophils # (Auto) 7.3 1.6-8.6 10 ^3/uL Lymphocytes # (Auto) 4.0 0.4-5.4 10 ^3/uL Monocytes # (Auto) 0.6 0-1.3 10 ^3/uL Eosinophils # (Auto) 0.2 0-0.8 10 ^3/uL Basophils # (Auto) 0.1 0-0.2 10 ^3/uL Nucleated Red Blood Cells 0.0 % Sodium Level 138 136-145 mmol/L Potassium Level 3.9 3.5-5.1 mmol/L Chloride Level 106 98-107 mmol/L Carbon Dioxide Level 23 20-31 mmol/L Anion Gap 9 5-15 Blood Urea Nitrogen 11 9-23 mg/dL Creatinine 0.81 0.550-1.02 mg/dL Glomerular Filtration Rate Calc 101 >90 mL/min BUN/Creatinine Ratio 13.6 10.0-20.0 Serum Glucose 100 74-106 mg/dL Calcium Level 9.9 8.7-10.4 mg/dL Beta HCG, Quantitative 497.4 H 1.5-4.2 mIU/mL Comments 29-year-old female who presents for follow up evaluation after previous visit for rectal bleeding and found to have PUL. Patient denied any further abdominal pain, pelvic pain, bleeding. Beta hCG is increasing. No intrauterine at this time. Patient is advised to follow up with PCP or horticulture worker for re- evaluation within 1 week. She was advised of return precautions. - I reviewed the following notes from the pt's past medical encounters: ED encounter for The following tests were ordered, and results were reviewed by me: (See diagnostic results section) The following test were independently interpreted by me: N/A Additional information was gathered from interviewing the following independent historians: (N/A) I reviewed and agreed with the following test results read by other providers: N/A I discussed treatments and results with patient. Decision regarding hospitalization or escalation of hospital level of care: Risks and benefits of admission for further treatment of patient's condition was considered however due to patient's stable condition patient will be discharged to follow up closely or return to care for worsening of condition or inability to follow up. Critical Care Note Critical Care Time?: No Stability Stability form required: No Heart Score Heart Score: Heart Score Response (Comments) Value History N/A 0 EKG N/A 0 Age N/A 0 Risk Factors N/A 0 Troponin N/A 0 Total 0 I personally scribed for MARY MORALES MD ([email or web address]) on 10/15/24 at 00:32. Electronically submitted by Ronny Castillo ([email or web address]). MARY MORALES MD Oct 15, 2024 00:32
[2024-10-15 01:12] LABS: Hemoglobin 12.3 g/dL (12.2-16.2); Red Cell Distribution Width 16.4 % (11.8-14.3)
[2024-10-15 01:14] LABS: Basophils # (auto) 0.1 10 ^3/uL (0-0.2); Basophils % (auto) 0.8 % (0.0-2.0); Eosinophils # (auto) 0.2 10 ^3/uL (0-0.8); Eosinophils % (auto) 1.8 % (0.0-7.0); Hematocrit 37.2 % (36.0-46.0); Lymphocytes % (auto) 32.4 % (10.0-50.0); Mean Corpuscular Hemoglobin 26.8 pg (28.0-32.0); Mean Corpuscular Hgb Conc. 32.9 g/dL (32.0-36.0); Mean Corpuscular Volume 81.3 fL (80.0-100.0); Monocytes # (auto) 0.6 10 ^3/uL (0-1.3); Monocytes % (auto) 4.9 % (0.0-12.0); Neutrophils # (auto) 7.3 10 ^3/uL (1.6-8.6); Neutrophils % (auto) 60.1 % (37.0-80.0); Platelet Count (auto) 363 10^3/uL (140-450); Red Blood Cells 4.58 10^6/uL (4.0-5.20); White Blood Cell 12.2 10^3/uL (4.4-10.8)
[2024-10-15 01:18] LABS: Chloride 106 mmol/L (98-107); Potassium 3.9 mmol/L (3.5-5.1); Sodium 138 mmol/L (136-145)
[2024-10-15 01:19] LABS: Anion Gap 9 (5-15); Calcium 9.9 mg/dL (8.7-10.4); Carbon Dioxide 23 mmol/L (20-31)
[2024-10-15 01:24] LABS: BUN/Creatinine Ratio 13.6 (10.0-20.0); Blood Urea Nitrogen 11 mg/dL (9-23); Glucose 100 mg/dL (74-106)
[2024-10-15 01:34] LABS: Urine Bacteria MANY /hpf (None Seen); Urine Blood Negative /uL (Negative); Urine Clarity Clear (Clear); Urine Color Light-Yellow (Yellow); Urine Mucus FEW (None Seen); Urine Protein, UAD Negative (Negative); Urine Specific Gravity 1.026 (1.001-1.035); Urine Squamous Epithelial Cell FEW /hpf (<5); Urine Urobilinogen Normal (Negative); Urine WBC 5 /HPF (0-5); Urine pH 5.5 (5.0-9.0)
--- NOTE | 2024-10-15 02:35 | DVH ---
INDICATION: Positive beta HCG TECHNIQUE: Real time transabdominal and endovaginal ultrasound imaging of the pelvis was pe rformed with harris scale, color flow, and spectral Doppler. COMPARISON: US OB ULTRASOUND COMP LESS 14WKS on DOS: 10/10/24 FINDINGS: The uterus is anteverted and measures 8.2 x 5.6 x 4.9 cm. The endometrial stripe measures 2.1 cm. N o evidence of gestational sac. Right ovary measures 3.8 x 3.3 x 2.8 cm. Unremarkable. Arterial and venous flow is present. Left ovary measures 2.9 x 2.7 x 1.7 cm . Unremarkable. Arterial and venous flow is present. No free fluid. IMPRESSION: Thickened endometrium without evidence of gestational sac, possibly relates to early IUP. Ectopic pre gnancy not excluded. The need for follow-up imaging can be clinically determined.
[2024-10-16 13:07] LABS: Chlamydia Trachomatis, NAA Negative (Negative); Neisseria gonorrhoeae, NAA Negative (Negative)
== END 2024-10-15 04:40 | disposition home or self-care (01) ==
LOC: ER 00:13
DX: O26.891 Other specified pregnancy related conditions, first trimester (principal); F20.9 Schizophrenia, unspecified; R93.89 Abnormal findings on diagnostic imaging of other specified body structures; K21.9 Gastro-esophageal reflux disease without esophagitis; Z3A.01 Less than 8 weeks gestation of pregnancy; Z79.899 Other long term (current) drug therapy
CPT/HCPCS: 36415; 76801; 76817; 80048; 81001; 81025; 84702; 85025

== ENCOUNTER 2025-06-19 07:09 | Emergency (ER) | payer MEDICAID ==
[~2025-06-19] VITALS: Ht 165.1 cm; Wt 104.0 kg
--- NOTE | 2025-06-19 08:16 | ED.PDOC ---
CLIENT SERVICES REPRESENTATIVE HPI Comments 30 year old female with PMHx schizophrenia presents to the ED with a chief complaint of vaginal bleeding onset today. Patient is currently 9 weeks , P:1 A:1. She woke up this morning experiencing sharp suprapubic pain, as well as mild vaginal bleeding. Denies fall, trauma, dysuria, vaginal discharge, fever, chills, nausea, vomiting, diarrhea, headache, dizziness. No other symptoms or modifying factors present at this time. Chief Complaint: Vaginal Bleed Time Seen by MD: 08:00 Reviewed Notes: Medications, Allergies Allergies: Coded Allergies: NO KNOWN ALLERGIES (Unverified , 05/13/21) Home Meds Active Scripts Nitrofurantoin Monohydrate Mac (Macrobid) 100 Mg Cap, 100 MG PO BID for 5 Days, #10 CAP Prov:MARY MORALES MD 10/10/24 Ciprofloxacin Hcl (Cipro) 500 Mg Tab, 500 MG PO DAILY for 10 Days, #10 TAB Prov:WILLIAM BO MD 05/13/21 Famotidine (PEPCID TABLET) 20 Mg Tb, 1 TAB PO BID for 10 Days, #20 TAB Prov:WILLIAM BO MD 05/13/21 Ondansetron (Zofran) 4 Mg Tab, 4 MG PO BID for 10 Days, #20 MG Prov:WILLIAM BO MD 05/13/21 Mode of Arrival: Ambulatory Timing: Hours Prehospital treatment: None Severity: Moderate Vaginal Discharge: None Vaginal Lesions: None Bleeding Quality: Bright Red Vaginal Mass: None Onset Of Mass/Bleeding: Spontaneous Sexual Activity: Control: None History of: Current Symptoms of Possible : Missed Period Associated Signs and Symptoms: Vaginal Bleeding Past Medical History PAST MEDICAL HISTORY: GERD, Schizophrenia Surgical History: Denies all surgeries [employer] History: No Pertinent [employer] History Family History Family History: Reviewed,noncontributory to illness Social History Smoker: Non-Smoker Alcohol: Denies ETOH Use Drugs: Denies Drug Use Lives In: Home Constitutional: denies: chills, diaphoresis, fatigue, fever, malaise, sweats, weakness, others EENTM: denies: blurred vision, double vision, ear bleeding, ear discharge, ear drainage, ear pain, ear ringing, eye pain, eye redness, hearing loss, mouth pain, mouth swelling, nasal discharge, nose bleeding, nose congestion, nose pain, photophobia, tearing, throat pain, throat swelling, voice changes, others Respiratory: denies: cough, hemoptysis, orthopnea, SOB at rest, shortness of breath, SOB with excertion, stridor, wheezing, others Cardiovascular: denies: chest pain, dizzy spells, diaphoresis, Dyspnea on exertion, edema, irregular heart beat, left arm pain, lightheadedness, palpitations, PND, syncope, others Gastrointestinal: denies: abdomen distended, abdominal pain, blood streaked bowels, constipated, diarrhea, dysphagia, difficulty swallowing, hematemesis, melena, nausea, poor appetite, poor fluid intake, rectal bleeding, rectal pain, vomiting, others Genitourinary: reports: abnormal vagina bleeding, pain, ; denies: burning, dyspareunia, dysuria, flank pain, frequency, hematuria, incontinence, vagina discharge, urgency, others Neurological: denies: dizziness, fainting, headache, left sided numbness, left sided weakness, numbness, paresthesia, pre-existing deficit, right sided numbness, right sided weakness, seizure, speech problems, tingling, tremors, weakness, others Musculoskeletal: denies: back pain, gout, joint pain, joint swelling, muscle p ain, muscle stiffness, neck pain, others Integumetry: denies: bruises, change in color, change in hair/nails, dryness, laceration, lesions, lumps, rash, wounds, others Allergic/Immunocompromised: denies: Difficulty Healing, Frequent Infections, Hives, Itching, others Hematologic/Lymphatic: denies: anemia, blood clots, easy bleeding, easy bruising, swollen glands, others Endocrine: denies: excessive hunger, excessive sweating, excessive thirst, excessive urination, flushing, intolerance to cold, intolerance to heat, unexplained weight gain, unexplained weight loss, others Psychiatric: denies: anxiety, bipolar disorder, depression, hopeless, panic disorder, schizophrenia, sleepless, suicidal, others All Other Systems: Reviewed and Negative Physical Exam General Appearance: No Apparent Distress, Normal HEENT: Normal ENT Inspection, Pharynx Normal, TMs Normal Neck: Full Range of Motion, Non-Tender, Normal, Normal Inspection Respiratory: Chest Non-Tender, Lungs Clear, No Accessory Muscle Use, No Respiratory Distress, Normal Breath Sounds Cardiovascular: No Edema, No JVD, No Murmur, No Gallop, Normal Peripheral Pulses, Regular Rate/Rhythm Breast Exam: Deferred Gastrointestinal: No Organomegaly, Non Tender, No Pulsatile Mass, Normal Bowel Sounds, Soft Genitalia: Deferred Pelvic: Deferred Rectal: Deferred Extremities: No calf tenderness, Normal capillary refill, Normal inspection, Normal range of motion, Non-tender, No pedal edema Musculoskeletal : Apperance: Normal Neurologic: Alert, fur sewer II-XII nml as Tested, No Motor Deficits, Normal Affect, Normal Mood, No Sensory Deficits Cerebellar Function: Normal Reflexes: Normal Skin: Dry, Normal Color, Warm Lymphatic: No Adenopathy Was a procedure done? Was a procedure done?: No Differential Diagnosis ([employer]) Vaginal Bleeding: - Incomplete, - Missed, Blood Loss Anemia, UTI X-Ray, Labs, Meds, VS Vital Signs Date Time Temp Pulse Resp B/P (MAP) Pulse Ox O2 Delivery O2 Flow Rate FiO2 06/19/25 07:11 98.5 83 18 102/67 97 98.5 Lab Test 06/19/25 09:36 06/19/25 08:24 Range/Units Urine Color Yellow Yellow Urine Clarity Clear Clear Urine pH 5.5 5.0-9.0 Urine Specific [place] 1.022 1.001-1.035 Urine Protein Negative Negative Urine Ketones Negative Negative Urine Blood Negative Negative /uL Urine Nitrite Negative Negative Urine Bilirubin Negative Negative Urine Urobilinogen Normal Negative mg/dL Urine Leukocyte Esterase Negative Negative /uL Urine RBC 2 0 - 4 /hpf Urine Microscopic WBC 1 0-5 /HPF Urine Squamous Epithelial Cells Few <5 /hpf Urine Bacteria Few H None Seen /hpf Urine Mucus Few None Seen Urine Glucose Normal Normal mg/dL White Blood Count 9.4 4.4-10.8 10^3/uL Red Blood Count 4.84 4.0-5.20 10^6/uL Hemoglobin 11.5 L 12.2-16.2 g/dL Hematocrit 35.2 L 36.0-46.0 % Mean Corpuscular Volume 72.6 L 80.0-100.0 fL Mean Corpuscular Hemoglobin 23.8 L 28.0-32.0 pg Mean Corpuscular Hemoglobin Concent 32.8 32.0-36.0 g/dL Red Cell Distribution Width 23.6 H 11.8-14.3 % Platelet Count 377 140-450 10^3/uL Mean Platelet Volume 7.9 6.9-10.8 fL Neutrophils (%) (Auto) 69.5 37.0-80.0 % Lymphocytes (%) (Auto) 23.8 10.0-50.0 % Monocytes (%) (Auto) 5.1 0.0-12.0 % Eosinophils (%) (Auto) 1.4 0.0-7.0 % Basophils (%) (Auto) 0.2 0.0-2.0 % Neutrophils # (Auto) 6.5 1.6-8.6 10 ^3/uL Lymphocytes # (Auto) 2.2 0.4-5.4 10 ^3/uL Monocytes # (Auto) 0.5 0-1.3 10 ^3/uL Eosinophils # (Auto) 0.1 0-0.8 10 ^3/uL Basophils # (Auto) 0 0-0.2 10 ^3/uL Nucleated Red Blood Cells 0.1 % Sodium Level 139 136-145 mmol/L Potassium Level 4.3 3.5-5.1 mmol/L Chloride Level 105 98-107 mmol/L Carbon Dioxide Level 23 20-31 mmol/L Anion Gap 11 5-15 Blood Urea Nitrogen 8 L 9-23 mg/dL Creatinine 0.58 0.550-1.02 mg/dL Glomerular Filtration Rate Calc 126 >90 mL/min BUN/Creatinine Ratio 13.8 10.0-20.0 Serum Glucose 90 74-106 mg/dL Calcium Level 9.3 8.7-10.4 mg/dL Beta HCG, Quantitative 13960.6 H 1.5-4.2 mIU/mL [place] [address] Ph: [phone] DIAGNOSTIC IMAGING Diagnostic Imaging Report : [id number] Signed PATIENT: LEIA REGALADO V ACCT: [id number] UNIT: [id number] : 1995 LOC: ER ROOM / BED: / AGE / SEX: 30 / F ADM STATUS: REG ER SERVICE [id number] ORDERING PHYSICIAN: KEILY MAYER MD PROCEDURE(s): OB4US - OB ULTRASOUND COMP LESS 14WKS REASON: abdominal pain and vaginal bleeding ORDER NUMBER(s): [id number], ACCESSION NUMBER(s): [id number] EXAM DESCRIPTION: US OB ULTRASOUND COMP LESS 14WKS CLINICAL HISTORY: abdominal pain and vaginal bleeding COMPARISON: None. TECHNIQUE: Multiple transverse and longitudinal sonograms of the pelvis were obtained utilizing transabdominal sonography. FINDINGS: The uterus measures 12.2 X 5.9 X 8.9 cm. A single viable intrauterine is identified. The crown-rump length measures 3.25 cm, corresponding to a sonographic gestational age of 9 weeks and 6 days. Positive heart motion is identified, with heart rate of 173 beats per minute. Small subchorionic hemorrhage measuring 2.3 x 1.6 x 2.2 cm The right ovary measures 2.9 X 2.0 X 2.7 cm and the left ovary measures 3.2 X 1.2 X 2.1 cm. The ovaries are normal in echogenicity and vascularity. No suspicious adnexal lesions. There is no free fluid. IMPRESSION: 1. Single viable intrauterine with a sonographic gestational age of 9 weeks and 6 days. Positive heart motion is identified. 2. Small subchorionic hemorrhage. ATED BY: ISAI ISIDRO MD DICTATED DATE/TIME: 06/19/25933 SIGNED BY: ISAI ISIDRO MD SIGNED DATE/TIME: 06/19/25933 CC: Time of 1ST Reevaluation: 08:30 Reevaluation 1ST: Unchanged Patient Education/Counseling: Diagnosis, Treatment, Prognosis Family Education/Counseling: No Family Present Departure 1 Departure Time of Disposition: 10:52 (Patient with a threatened miscarriage. We will discharge patient home with outpatient follow up) Impression: Primary Impression: Threatened miscarriage Disposition: 01 HOME / SELF CARE / HOMELESS Condition: Stable Additional Instructions: You have a threatened miscarriage. Your beta hcg level today was 32457. Your ultrasound showed Single viable intrauterine with a sonographic gestational age of 9 weeks and 6 days. Positive heart motion is identified and Small subchorionic hemorrhage. You should follow up with OBGYN within three days to recheck your blood work. If your symptoms worsen or you have any other concerns then please return to the ER. Discharged With: Self Critical Care Note Critical Care Time?: No Stability Stability form required: No Heart Score Heart Score: Heart Score Response (Comments) Value History N/A 0 EKG N/A 0 Age N/A 0 Risk Factors N/A 0 Troponin N/A 0 Total 0 I personally scribed for KEILY MAYER MD ([email or web address]) on 06/19/25 at 08:16. Electronically submitted by Lata Bartlett ([email or web address]). I personally scribed for KEILY MAYER MD ([email or web address]) on 06/19/25 at 09:56. Electronically submitted by Lata Bartlett ([email or web address]). KEILY MAYER MD Jun 19, 2025 08:16
[2025-06-19 08:57] LABS: Hemoglobin 11.5 g/dL (12.2-16.2)
[2025-06-19 08:59] LABS: Hematocrit 35.2 % (36.0-46.0); Mean Corpuscular Hemoglobin 23.8 pg (28.0-32.0); Mean Corpuscular Volume 72.6 fL (80.0-100.0); Nucleated Red Blood Cells % 0.1 %
[2025-06-19 09:04] LABS: Chloride 105 mmol/L (98-107); Potassium 4.3 mmol/L (3.5-5.1); Sodium 139 mmol/L (136-145)
[2025-06-19 09:05] LABS: Anion Gap 11 (5-15); Carbon Dioxide 23 mmol/L (20-31)
[2025-06-19 09:06] LABS: Calcium 9.3 mg/dL (8.7-10.4)
[2025-06-19 09:10] LABS: Glucose 90 mg/dL (74-106)
[2025-06-19 09:11] LABS: BUN/Creatinine Ratio 13.8 (10.0-20.0)
[2025-06-19 09:12] LABS: Blood Urea Nitrogen 8 mg/dL (9-23)
--- NOTE | 2025-06-19 09:37 | DVH ---
EXAM DESCRIPTION: US OB ULTRASOUND COMP LESS 14WKS CLINICAL HISTORY: abdominal pain and vaginal bleeding COMPARISON: None. TECHNIQUE: Multiple transverse and longitudinal sonograms of the pelvis were obtained utilizing transabdominal sonography. FINDINGS: The uterus measures 12.2 X 5.9 X 8.9 cm. A single viable intrauterine is identified. The crown-rump length measures 3.25 cm, corresponding to a sonographic gestational age of 9 weeks and 6 days. Positive heart motion is identified, with heart rate of 173 beats per minute. Small subchorionic hemorrhage measuring 2.3 x 1.6 x 2.2 cm The right ovary measures 2.9 X 2.0 X 2.7 cm and the left ovary measures 3.2 X 1.2 X 2.1 cm. The ovaries are normal in echogenicity and vascularity. No suspicious adnexal lesions. There is no free fluid. IMPRESSION: 1. Single viable intrauterine with a sonographic gestational age of 9 weeks and 6 days. Positive heart motion is identified. 2. Small subchorionic hemorrhage.
[2025-06-19 10:20] LABS: Urine Protein, UAD Negative (Negative)
[2025-06-19 11:07] VITALS: BP 108/75; PULSE 90; RESP 15; TEMP 97.6; O2SAT 98
== END 2025-06-19 11:09 | disposition home or self-care (01) ==
LOC: ER 07:09
DX: O20.0 Threatened abortion (principal); Z3A.09 9 weeks gestation of pregnancy; Z79.899 Other long term (current) drug therapy
CPT/HCPCS: 36415; 76801; 80048; 81001; 84702; 85025; 86900; 86901